=== PATIENT | male | born 1965 | race Two or more races ===

== ENCOUNTER 2025-04-23 20:42 | Emergency (ER) | payer OTHER, SELFPAY ==
[2025-04-23 20:48] VITALS: BP 110/64; PULSE 80; TEMP 36.6; O2SAT 98; BMI 27.1
--- NOTE | 2025-04-23 21:00 | ED.GENADUL1 ---
HPI HPI - General Adult General Chief complaint: Wound/Laceration Stated complaint: R SHOULDER PAIN Time Seen by Provider: 04/23/25 20:55 Source: patient Mode of arrival: walk-in Limitations: no limitations History of Present Illness HPI narrative: This is a 60-year-old male presents with chief complaint of painful swelling posteriorly over the proximal right upper arm for the last few days. He was started on Bactrim 2 days ago. He denies chills or fever, shortness of breath, chest pain or abdominal pain. He is diabetic but does not know the names of his medications. Related Data Home Medications ?Medication ?Instructions ?Recorded ?Confirmed sulfamethoxazole 400 2 tab PO DAILY 04/23/25 04/23/25 mg-trimethoprim 80 mg tablet (Bactrim) Previous Rx's ?Medication ?Instructions ?Recorded cephalexin 500 mg capsule 500 mg PO TID 10 days #30 caps 04/23/25 doxycycline hyclate 100 mg capsule 100 mg PO BID 10 days #20 caps 04/23/25 Allergies Allergy/AdvReac Type Severity Reaction Status Date / Time No Known Drug Allergies Allergy Verified 04/23/25 20:52 Opioid HPI Opioid Management Most Recent Opioid Data: Last Pain Scale 6 Today, 21:08 Last ED Pain Assessment Today, 21:08 Review of Systems ROS Status of ROS 10 or more systems reviewed and unremarkable except as noted in history and below Exam Narrative Exam Narrative: Vital signs are stable. Patient is afebrile and is nondistressed. Examination of the right arm reveals an area of induration roughly 2 cm in diameter with superficial scab and surrounding erythema and in diameter for about 5 cm. There is no underlying fluctuance. The area is indurated consistent with early abscess. He has full range of motion of the right shoulder. HEENT exam is normal to inspection. Neck is supple. Lung sounds are clear to auscultation bilaterally. Heart has regular rate and rhythm. S1 and S2 are normal. Constitutional Vital Signs, click to edit/add: Last Vital Signs Temp 97.8 F 04/23/25 20:48 Pulse 80 04/23/25 20:48 Resp 18 04/23/25 20:48 BP 110/64 04/23/25 20:48 Pulse Ox 98 04/23/25 20:48 O2 Del Method Room Air 04/23/25 20:48 Course Vital Signs Vital signs: Vital Signs Temperature 97.8 F 04/23/25 20:48 Pulse Rate 80 04/23/25 20:48 Respiratory Rate 18 04/23/25 20:48 Blood Pressure 110/64 04/23/25 20:48 Pulse Oximetry 98 04/23/25 20:48 Oxygen Delivery Method Room Air 04/23/25 20:48 Temperature 97.8 F 04/23/25 20:48 Pulse Rate 80 04/23/25 20:48 Respiratory Rate 18 04/23/25 20:48 Blood Pressure 110/64 04/23/25 20:48 Pulse Oximetry 98 04/23/25 20:48 Oxygen Delivery Method Room Air 04/23/25 20:48 Medical Decision Making MDM Narrative Medical decision making narrative: Patient presents with an evolving abscess of the right upper arm and has been on an oral antibiotic for the last couple days without improvement. I am switching him to doxycycline and Keflex and have advised him to use warm moist compresses to the affected area and seek follow-up in 3 days time by which time I hope it will may be ready for incision and drainage. He is to stop taking Bactrim. Patient may return anytime for worsening symptoms. Discharge Plan Discharge Chief Complaint: Wound/Laceration Clinical Impression: Abscess Patient Disposition: Home, Self-Care Condition: Good Mode of Transportation: Private Vehicle Prescriptions / Home Meds: New doxycycline hyclate 100 mg capsule 100 mg PO BID 10 Days Qty: 20 0RF cephalexin 500 mg capsule 500 mg PO TID 10 Days Qty: 30 0RF No Action sulfamethoxazole-trimethoprim [Bactrim] 400-80 mg tablet 2 tab PO DAILY Print Language: [place] Instructions: Abscess (ED) Additional Instructions: Apply warm moist compresses to affected area for 10 minutes 4-5 times a day. Stop taking Bactrim. Follow-up with your physician in 3 days. Return for worsening symptoms. Referrals: [facility] [Primary Care Provider, Unknown] - 1 week Referral Note: Follow-up with your physician in 3 days. Clinical Impression: Abscess
--- NOTE | 2025-04-23 21:10 | PC.NURSE ---
pt presents to ER for a lesion on the back of his right arm/front of shoulder Pt states this began as a small red dot 5 days ago Area now is draining pus like fluid and has large reddened area circulating the area Pt states it is painful to touch and move Pt started on Bactriwednesday
== END 2025-04-23 21:20 | disposition home or self-care (01) ==
PROVIDERS: Emergency Provider Emergency Medicine
DX: L02.413 Cutaneous abscess of right upper limb (principal); E11.9 Type 2 diabetes mellitus without complications
CPT/HCPCS: 99283